=== PATIENT | male | born 1960 | race African-American/Black ===

== ENCOUNTER 2017-10-15 12:05 | Emergency (ER) | END 2017-10-15 12:45 | disposition home or self-care (01) ==

== ENCOUNTER 2018-01-14 03:15 | Inpatient (IN) | END 2018-01-21 17:50 | disposition home or self-care (01) | DRG 603 ==

== ENCOUNTER 2018-09-09 20:40 | Inpatient (IN) | END 2018-09-22 12:48 | disposition home or self-care (01) | DRG 208 ==